=== PATIENT | male | born 1955 | race Caucasian/White ===

== ENCOUNTER 2018-07-06 12:27 | Inpatient (IN) | payer SELFPAY ==
[2018-07-06] VITALS (12 sets, daily range): BP systolic 137–180; BP diastolic 82–98; PULSE 112–134; RESP 20–23; TEMP 36.9–38.2; O2SAT 91–95; BMI 35.6; BMI 35.4
--- NOTE | 2018-07-06 13:01 | EKG12_ITS ---
Test Reason : SOB Blood Pressure : / mmHG Vent. Rate : 126 BPM Atrial Rate : 126 BPM P-R Int : 122 ms QRS Dur : 084 ms QT Int : 318 ms P-R-T Axes : 012 046 062 degrees QTc Int : 460 ms Sinus tachycardia Septal infarct , age undetermined Abnormal ECG Confirmed by MENDEZ QIU, JUANJO ([id number]), market editor MIKAYLA CARDENAS ([id number]) on 07/13/2018 3:22:25 PM Referred By: JIMY Confirmed By:JUANJO SIMMS MD
--- NOTE | 2018-07-06 13:04 | ED.DCSUM_ITS ---
- ER Visit Summary Date of Service: 07/06/18 Chief Complaint: Cough History of Present Illness: The patient is a 63 M who is had 2 months of cough. He has not felt well over this period of time. This morning he went to an urgent care and was diagnosed with pneumonia. His heart rate was elevated and he is a former smoker as he quit 2 weeks ago. He states he has had low-grade fevers at home and was 100.3 ?F at the urgent care today. He does not have any history of any lung issues. He is not on home oxygen. He has noticed some fluid retention in his legs recently. Physical Examination: Vital signs are reviewed. Significant for heart rate in the 120s. Temperature 98.4 here. HEENT exam unremarkable. Heart is tachycardic and regular rhythm without murmurs. Lungs have rhonchi in the right base. Abdomen soft and nontender. Extremities reveal 1+ symmetric edema. His neurologic exam is at baseline and normal. Test Results: EKG is sinus tachycardia with a rate of 126. Nonspecific ST and T wave changes noted. Chest x-ray reveals a left lower lobe infiltrate with effusion white blood cell count 25.5, hemoglobin 12.8, sodium 128, chloride 91. Total bilirubin is 1.5. Lactate is 2.3. Urinalysis negative for infection. Emergency Department Course and Treatment: Patient meets severe sepsis criteria. He was hydrated with fluids and given Rocephin and azithromycin. His blood pressure is been stable. Patient will be admitted to the hospital on antibiotics Treatment Plan: [] Disposition: Admit Impression: Severe sepsis, community-acquired pneumonia This note was generated with Software 2000 dictation software. It may contain incorrect words, spelling, and punctuation that were not noted in review of the chart prior to signing ED Disposition - Plan for ED Patient: Chief Complaint: Shortness of Breath Referrals: NOT,DEFINED [NON-STAFF] -
--- NOTE | 2018-07-06 13:05 | RAD_ITS ---
STUDY: X-RAY CHEST REASON FOR EXAM: Male, 63 years old. 2 week history of cough and shortness of breath. TECHNIQUE: Single AP portable view of the chest. COMPARISON: None. FINDINGS: EKG electrodes are seen. There is a small left pleural effusion with left basilar infiltration. The right lung is clear. There is no demonstrated pleural abnormality. Normal size heart. Normal mediastinum and luz. Normal visualized pulmonary arteries. Normal visualized aortic arch and descending thoracic aorta. Normal visualized thoracic spine. Normal visualized ribs, clavicles, and shoulders. There is no demonstrated abnormality of the visualized soft tissue structures of the upper abdomen. RAD/Chest 1 View (Portable) IMPRESSION: Small left pleural effusion with underlying left basilar infiltration. Electronically Signed: Lele Marvin MD at 13:33 EDT Tel [phone], Service support ,
--- NOTE | 2018-07-06 13:09 | NURSING ---
NO OLD EKGS
[2018-07-06 13:39] LABS: International Normalized Ratio 1.2; Prothrombin Time (Protime)PT. 15.2 SECONDS (11.7-14.9)
[2018-07-06 13:40] LABS: Partial Thromboplast Time 35.1 Seconds (24.1-36.2)
[2018-07-06 13:49] LABS: ALB/GLOB Ratio 0.6 RATIO (0.9-2.4); AST(SGOT) 24 U/L (15-37); Alanine Aminotransfer ALT/SGPT 29 U/L (16-61); Albumin, Serum 2.8 g/dL (3.2-5.0); Alkaline Phosphatase 115 U/L (45-117); Anion Gap 12 (5-15); BUN 9 mg/dL (7-18); BUN/Creat Ratio 8.7 RATIO (10-20); Calcium,Total 8.4 mg/dL (8.5-10.1); Chloride 91 mmol/L (98-107); Creatinine, Serum 1.03 mg/dL (0.70-1.30); EST Glomerular Filtration Rate 77 mL/min (>60); Est Glom Filt Rate - Afr Amer 94 mL/min (>60); Globulin 4.8 g/dL (2.2-4.2); Glucose 112 mg/dL (74-106); Potassium 3.3 mmol/L (3.5-5.1); Protein, Total 7.6 g/dL (6.4-8.2); Sodium Level 128 mmol/L (136-145)
[2018-07-06 13:51] LABS: Absolute Neutrophil Count 21.5 X10^3/uL (2.0-7.7); Basophil# 0.03 X10^3/uL; Basophil% 0.1 % (0-1); Eosinophil# 0.02 X10^3/uL; Eosinophils% 0.1 % (0-5); Hematocrit 35.4 % (40-54); Hemoglobin 12.8 g/dl (13.0-16.5); Lymphocyte % 4.7 % (19-41); Mean Corp Hgb Conc 36.2 g/gl (32-36); Mean Corpuscular Hgb 35.5 pg (27.0-32.0); Mean Corpuscular Volume 98.1 fL (80-94); Mean Platelet Vol. 10.6 fl (6.2-12.0); Monocyte# 2.64 X10^3/uL; Monocyte% 10.4 % (0-10); Neutrophil # 21.52 X10^3/uL (2.7-7.7); Neutrophil % 84.4 % (47-70); Platelet Count 235 K/mm3 (150-450); RBC Distribution Width CV 13.8 % (11.6-14.6); RBC Distribution Width SD 47.7 fl (35.1-43.9); Red Blood Count 3.61 M/mm3 (4.6-6.2); White Blood Count 25.5 K/mm3 (4.4-11.0)
[2018-07-06 13:52] LABS: Differential Indicated SCAN CRITERIA MET; POSITIVE COUNT NO; POSITIVE DIFFERENTIAL YES; POSITIVE MORPHOLOGY YES
[2018-07-06 13:55] LABS: Lactic Acid 2.3 mmol/L (0.4-2.0)
[2018-07-06 13:56] LABS: Bacteria 0 SEEN /hpf (None Seen); Mucous, Urine 0 SEEN /hpf (<or=2+); Red Blood Cells-Urine 0 SEEN /hpf (0-5); White Blood Cells 0 SEEN /hpf (0-5)
--- NOTE | 2018-07-06 13:57 | ED.RN ---
lactic acid 2.3. aware
[2018-07-06 14:03] LABS: Color, Urine Yellow (Yellow); Glucose, Dipstick Normal (Normal); Ketone-Dipstick 50 mg/dl (Negative); Leukocyte Esterase-Dipstick Negative /ul (Negative); Nitrite-Dipstick Negative (Negative); Occult Blood-Urine 50 /ul (Negative); Protein-Dipstick 100 mg/dl (Negative); Urine Bilirubin Dipstick Negative (Negative); Urine Clarity Sl. Cloudy (Clear); Urine Urobilinogen 1 mg/dl (Normal)
[2018-07-06 14:09] LABS: Squamous Epithelial Cells - UA 0-5 SEEN /hpf (0-5)
--- NOTE | 2018-07-06 14:23 | NURSING ---
[address]SE[address] SEPSIS, PNEUMONIA
[2018-07-06] MEDS: 0.9% Normal Saline 1,000 ML 250 ML IV (14:27)
[2018-07-06] MEDS: Ceftriaxone 1 GM/50 ML BAG IV (14:35)
--- NOTE | 2018-07-06 14:35 | PCM.HP.STD ---
Problem List (1) Severe sepsis Status: Acute (2) Pneumococcal pneumonia Status: Acute Qualifiers: Laterality: left Lung location: lower lobe of lung Qualified Code(s): J13 - Pneumonia due to Streptococcus pneumoniae (3) Hyponatremia Status: Acute (4) Hypokalemia Status: Acute History of Present Illness Date of Admission: 07/06/18 Chief Complaint: cough. chills. The patient is a 63 year old M been coughing for the past couple months but over the past couple days, patient has been feeling worse. Patient has been coughing up green phlegm and today was noted to have Reiger's. Presented to urgent care was found to have a left lower lobe pneumonia and sent to the serum. In the emergency room, patient was noted to have a white count sent, a left lower lobe infiltrate and/or effusion. Patient received IV fluids, ceftriaxone and azithromycin. Additionally, patient's lactic acid was elevated at 2.3. [] Past Medical History Medical History: Medical History (Last Updated 07/06/18 @ 14:39 by Marcell Galvan DO) Alcohol abuse F10.10 Tobacco abuse Z72.0 Allergies grass pollen Allergy (Verified 07/06/18 12:30) Other mold Allergy (Verified 07/06/18 12:30) Other ragweed pollen Allergy (Verified 07/06/18 12:30) Other Home Medications: Ambulatory Orders Medication Instructions Recorded NK 07/06/18 Psychiatric History: No pertinent psych hx Lives: With Family Smoking Status: Heavy Smoker (>10/day) Tobacco Use: Cigarettes Alcohol: Heavy Drugs: None - *Family History Maternal History Items: - - no cancer. no COPD. Review of Systems Constitutional: Reports: Chills, Malaise, Weakness. Denies: Anorexia, Fever Eyes: Denies: Blurred vision, Double vision HEENT: Denies: Head Aches, Sinus Congestion, Sinus Drainage Cardiovascular: Reports: Chest Pain - left lateral, Edema - chronic Respiratory: Reports: Cough, Shortness of Breath, Shortness of breath upon exertion, Sputum production Gastrointestinal: Denies: Abdominal Pain, Nausea, Vomiting Genitourinary: Denies: Dysuria Musculoskeletal: Denies: Joint Pain, Joint Tenderness Skin: Denies: Rash, Wounds Neurological: Denies: Numbness, Tingling, Focal weakness Psychiatric: Denies: Anxiety, Depression Endocrine: Denies: Change in Body Habitus Hematologic/ Lymphatic: Denies: Easy Bruising, Easy Bleeding, Hx of blood clot Comment: All review of systems are negative except as mentioned in the history of present illness and the other review of systems. VTE Information - Inpt Only VTE Present on Admission: No VTE Mechan Device Prophylaxis: None VTE Pharm Prophylaxis ordered?: Yes Patient Problems: Active and Suspected Problems Severe sepsis (Acute) Pneumococcal pneumonia (Acute) Hyponatremia (Acute) Hypokalemia (Acute) - Physical Exam General: Alert, Cooperative, No apparent distress, - - Listless. Afebrile. No conversational dyspnea. HEENT: Atraumatic, Normocephalic, - - No icterus Oral: Moist Mucosa, No Gingival or Mucosal Lesions/ Ulcerations Neck: No Nodes, Thyroid Normal Size and Texture Lungs: Diminished, - - Dullness to percussion in the left lower lobe Cardiovascular: Regular rate, Regular Rhythm, Normal S1, Normal S2, No murmurs Abdomen: Bowel Sounds Present, Soft, Non Tender, Non-Distended, No Hepato-splenomegaly Extremities: No Calf Tenderness, Edema Skin: No rashes, No breakdown Musculoskeletal: No Tenderness to Palpation of Joints or Extremities, No Muscle Wasting Neurological: Deep Tendon Reflexes 2+/4 and Symmetrical, Sensory exam intact to light touch and pain Psych/Mental Status: Appropriate, Flat Affect Vital Signs Temp Pulse Resp BP Pulse Ox 36.9 C 121 H 22 H 180/83 H 94 07/06/18 12:28 07/06/18 12:28 07/06/18 12:28 07/06/18 12:28 07/06/18 12:28 Oxygen Flow Rate (L/min) 2 Oxygen Delivery Method Nasal Cannula Weight: 106.141 kg Body Mass Index (BMI) 35.6 Laboratory Tests Past 24 Hrs 07/06/18 07/06/18 07/06/18 13:15 13:15 13:15 WBC 25.5 H RBC 3.61 L Hgb 12.8 L Hct 35.4 L MCV 98.1 H MCH 35.5 H MCHC 36.2 H RDW 13.8 RDW Differential 47.7 H Plt Count 235 MPV 10.6 Immature Gran % (Auto) 0.300 Neut % (Auto) 84.4 H Lymph % (Auto) 4.7 L [place] % (Auto) 10.4 H Eos % (Auto) 0.1 Baso % (Auto) 0.1 Absolute Neuts (auto) 21.5 H Absolute Lymphs (auto) 1.20 Total Counted Not Reportable Differential Comment COMMENT Diff Path Review May foll PT 15.2 H INR 1.2 APTT 35.1 Sodium 128 L Potassium 3.3 L Chloride 91 L Carbon Dioxide 25.0 Anion Gap 12 BUN 9 Creatinine 1.03 Estim Creat Clear Calc 70.10 Est GFR (MDRD) Af Amer 94 Est GFR (MDRD) Non-Af 77 BUN/Creatinine Ratio 8.7 L Glucose 112 H Lactic Acid Calcium 8.4 L Total Bilirubin 1.50 H AST 24 ALT 29 Alkaline Phosphatase 115 Total Protein 7.6 Albumin 2.8 L Globulin 4.8 H Albumin/Globulin Ratio 0.6 L Urine Color Urine Clarity Urine pH Ur Specific [place] Urine Protein Urine Glucose (UA) Urine Ketones Urine Occult Blood Urine Nitrite Urine Bilirubin Urine Urobilinogen Ur Leukocyte Esterase Urine RBC Urine WBC Ur Squamous Epith Cells Urine Bacteria Urine Mucus 07/06/18 07/06/18 13:15 13:50 WBC RBC Hgb Hct MCV MCH MCHC RDW RDW Differential Plt Count MPV Immature Gran % (Auto) Neut % (Auto) Lymph % (Auto) [place] % (Auto) Eos % (Auto) Baso % (Auto) Absolute Neuts (auto) Absolute Lymphs (auto) Total Counted Differential Comment Diff Path Review PT INR APTT Sodium Potassium Chloride Carbon Dioxide Anion Gap BUN Creatinine Estim Creat Clear Calc Est GFR (MDRD) Af Amer Est GFR (MDRD) Non-Af BUN/Creatinine Ratio Glucose Lactic Acid 2.3 H Calcium Total Bilirubin AST ALT Alkaline Phosphatase Total Protein Albumin Globulin Albumin/Globulin Ratio Urine Color Yellow Urine Clarity Sl. Cloudy Urine pH 6.0 Ur Specific [place] 1.010 Urine Protein 100 H Urine Glucose (UA) Normal Urine Ketones 50 H Urine Occult Blood 50 H Urine Nitrite Negative Urine Bilirubin Negative Urine Urobilinogen 1 H Ur Leukocyte Esterase Negative Urine RBC 0 SEEN Urine WBC 0 SEEN Ur Squamous Epith Cells 0-5 SEEN Urine Bacteria 0 SEEN Urine Mucus 0 SEEN EKG reviewed and showed sinus tachycardia without any acute changes Chest x-ray reviewed and showed left lower lobe infiltrate and/or effusion Assessment/Plan All Active Problems Severe sepsis (Acute) Pneumococcal pneumonia (Acute) Hyponatremia (Acute) Hypokalemia (Acute) 1. Severe sepsis Present on arrival Secondary to pneumonia Supportive management with IV fluids Follow-up lactic acid until normalized 2. Presumed pneumococcal pneumonia Patient will continue with azithromycin and Rocephin Pulmonary toilet with bronchodilators and physiotherapy Check urinary antigens for Streptococcus and Legionella Check sputum culture Check CT to evaluate for an effusion. Did discuss this with the patient that given his extensive smoking history that he could be at risk for malignancy and may have a postobstructive process possibly. 3. Hyponatremia Unclear etiology but certainly could be related with beer potomania IV fluids Reevaluate on the second If no improvement, consider checking for other etiologies for hyponatremia, such as hypothyroidism and SIADH. 4. Hypokalemia Replace with 40 mEq of K Dur Check magnesium level 5. Alcohol abuse Patient drinks 12 beers per day and occasional have a pint of vodka on top of that Patient's last drink was sometime this morning Patient is not going to acute alcohol withdrawal at this time I will, however, have them on the CIWA protocol Start thiamine and folate I did discuss with the patient and his son that symptoms of acute alcohol withdrawal could be anywhere from diffuse first few hours after his last drink to 4 days. 6. DVT prophylaxis with Lovenox Discussed with the patient's son at bedside. Code Visit Inpatient E&M: 07352 Init Hosp L3
--- NOTE | 2018-07-06 14:39 | HP.PCM_ITS ---
Problem List (1) Severe sepsis Status: Acute (2) Pneumococcal pneumonia Status: Acute Qualifiers: Laterality: left Lung location: lower lobe of lung Qualified Code(s): J13 - Pneumonia due to Streptococcus pneumoniae (3) Hyponatremia Status: Acute (4) Hypokalemia Status: Acute History of Present Illness Date of Admission: 07/06/18 Chief Complaint: cough. chills. The patient is a 63 year old M been coughing for the past couple months but over the past couple days, patient has been feeling worse. Patient has been coughing up green phlegm and today was noted to have Reiger's. Presented to urgent care was found to have a left lower lobe pneumonia and sent to the serum. In the emergency room, patient was noted to have a white count sent, a left lower lobe infiltrate and/or effusion. Patient received IV fluids, ceftriaxone and azithro mycin. Additionally, patient's lactic acid was elevated at 2.3. [] Past Medical History Medical History: Medical History (Last Updated 07/06/18 @ 14:39 by Marcell Galvan DO) Alcohol abuse F10.10 Tobacco abuse Z72.0 Allergies grass pollen Allergy (Verified 07/06/18 12:30) Other mold Allergy (Verified 07/06/18 12:30) Other ragweed pollen Allergy (Verified 07/06/18 12:30) Other Home Medications: Ambulatory Orders Medication Instructions Recorded NK 07/06/18 Psychiatric History: No pertinent psych hx Lives: With Family Smoking Status: Heavy Smoker (>10/day) Tobacco Use: Cigarettes Alcohol: Heavy Drugs: None - *Family History Maternal History Items: - - no cancer. no COPD. Review of Systems Constitutional: Reports: Chills, Malaise, Weakness. Denies: Anorexia, Fever Eyes: Denies: Blurred vision, Double vision HEENT: Denies: Head Aches, Sinus Congestion, Sinus Drainage Cardiovascular: Reports: Chest Pain - left lateral, Edema - chronic Respiratory: Reports: Cough, Shortness of Breath, Shortness of breath upon exertion, Sputum production Gastrointestinal: Denies: Abdominal Pain, Nausea, Vomiting Genitourinary: Denies: Dysuria Musculoskeletal: Denies: Joint Pain, Joint Tenderness Skin: Denies: Rash, Wounds Neurological: Denies: Numbness, Tingling, Focal weakness Psychiatric: Denies: Anxiety, Depression Endocrine: Denies: Change in Body Habitus Hematologic/ Lymphatic: Denies: Easy Bruising, Easy Bleeding, Hx of blood clot Comment: All review of systems are negative except as mentioned in the history of present illness and the other review of systems. VTE Information - Inpt Only VTE Present on Admission: No VTE Mechan Device Prophylaxis: None VTE Pharm Prophylaxis ordered?: Yes Patient Problems: Active and Suspected Problems Severe sepsis (Acute) Pneumococcal pneumonia (Acute) Hyponatremia (Acute) Hypokalemia (Acute) - Physical Exam General: Alert, Cooperative, No apparent distress, - - Listless. Afebrile. No conversational dyspnea. HEENT: Atraumatic, Normocephalic, - - No icterus Oral: Moist Mucosa, No Gingival or Mucosal Lesions/ Ulcerations Neck: No Nodes, Thyroid Normal Size and Texture Lungs: Diminished, - - Dullness to percussion in the left lower lobe Cardiovascular: Regular rate, Regular Rhythm, Normal S1, Normal S2, No murmurs Abdomen: Bowel Sounds Present, Soft, Non Tender, Non-Distended, No Hepato- splenomegaly Extremities: No Calf Tenderness, Edema Skin: No rashes, No breakdown Musculoskeletal: No Tenderness to Palpation of Joints or Extremities, No Muscle Wasting Neurological: Deep Tendon Reflexes 2+/4 and Symmetrical, Sensory exam intact to light touch and pain Psych/Mental Status: Appropriate, Flat Affect Vital Signs Temp Pulse Resp BP Pulse Ox 36.9 C 121 H 22 H 180/83 H 94 07/06/18 12:28 07/06/18 12:28 07/06/18 12:28 07/06/18 12:28 07/06/18 12:28 Oxygen Flow Rate (L/min) 2 Oxygen Delivery Method Nasal Cannula Weight: 106.141 kg Body Mass Index (BMI) 35.6 Laboratory Tests Past 24 Hrs 07/06/18 07/06/18 07/06/18 13:15 13:15 13:15 WBC 25.5 H RBC 3.61 L Hgb 12.8 L Hct 35.4 L MCV 98.1 H MCH 35.5 H MCHC 36.2 H RDW 13.8 RDW Differential 47.7 H Plt Count 235 MPV 10.6 Immature Gran % (Auto) 0.300 Neut % (Auto) 84.4 H Lymph % (Auto) 4.7 L [place] % (Auto) 10.4 H Eos % (Auto) 0.1 Baso % (Auto) 0.1 Absolute Neuts (auto) 21.5 H Absolute Lymphs (auto) 1.20 Total Counted Not Reportable Differential Comment COMMENT Diff Path Review May foll PT 15.2 H INR 1.2 APTT 35.1 Sodium 128 L Potassium 3.3 L Chloride 91 L Carbon Dioxide 25.0 Anion Gap 12 BUN 9 Creatinine 1.03 Estim Creat Clear Calc 70.10 Est GFR (MDRD) Af Amer 94 Est GFR (MDRD) Non-Af 77 BUN/Creatinine Ratio 8.7 L Glucose 112 H Lactic Acid Calcium 8.4 L Total Bilirubin 1.50 H AST 24 ALT 29 Alkaline Phosphatase 115 Total Protein 7.6 Albumin 2.8 L Globulin 4.8 H Albumin/Globulin Ratio 0.6 L Urine Color Urine Clarity Urine pH Ur Specific [place] Urine Protein Urine Glucose (UA) Urine Ketones Urine Occult Blood Urine Nitrite Urine Bilirubin Urine Urobilinogen Ur Leukocyte Esterase Urine RBC Urine WBC Ur Squamous Epith Cells Urine Bacteria Urine Mucus 07/06/18 07/06/18 13:15 13:50 WBC RBC Hgb Hct MCV MCH MCHC RDW RDW Differential Plt Count MPV Immature Gran % (Auto) Neut % (Auto) Lymph % (Auto) [place] % (Auto) Eos % (Auto) Baso % (Auto) Absolute Neuts (auto) Absolute Lymphs (auto) Total Counted Differential Comment Diff Path Review PT INR APTT Sodium Potassium Chloride Carbon Dioxide Anion Gap BUN Creatinine Estim Creat Clear Calc Est GFR (MDRD) Af Amer Est GFR (MDRD) Non-Af BUN/Creatinine Ratio Glucose Lactic Acid 2.3 H Calcium Total Bilirubin AST ALT Alkaline Phosphatase Total Protein Albumin Globulin Albumin/Globulin Ratio Urine Color Yellow Urine Clarity Sl. Cloudy Urine pH 6.0 Ur Specific [place] 1.010 Urine Protein 100 H Urine Glucose (UA) Normal Urine Ketones 50 H Urine Occult Blood 50 H Urine Nitrite Negative Urine Bilirubin Negative Urine Urobilinogen 1 H Ur Leukocyte Esterase Negative Urine RBC 0 SEEN Urine WBC 0 SEEN Ur Squamous Epith Cells 0-5 SEEN Urine Bacteria 0 SEEN Urine Mucus 0 SEEN EKG reviewed and showed sinus tachycardia without any acute changes Chest x-ray reviewed and showed left lower lobe infiltrate and/or effusion Assessment/Plan All Active Problems Severe sepsis (Acute) Pneumococcal pneumonia (Acute) Hyponatremia (Acute) Hypokalemia (Acute) 1. Severe sepsis * Present on arrival * Secondary to pneumonia * Supportive management with IV fluids * Follow-up lactic acid until normalized 2. Presumed pneumococcal pneumonia * Patient will continue with azithromycin and Rocephin * Pulmonary toilet with bronchodilators and physiotherapy * Check urinary antigens for Streptococcus and Legionella * Check sputum culture * Check CT to evaluate for an effusion. Did discuss this with the patient that given his extensive smoking history that he could be at risk for malignancy and may have a postobstructive process possibly. 3. Hyponatremia * Unclear etiology but certainly could be related with beer potomania * IV fluids * Reevaluate on the second * If no improvement, consider checking for other etiologies for hyponatremia, such as hypothyroidism and SIADH. 4. Hypokalemia * Replace with 40 mEq of K Dur * Check magnesium level 5. Alcohol abuse * Patient drinks 12 beers per day and occasional have a pint of vodka on top of that * Patient's last drink was sometime this morning * Patient is not going to acute alcohol withdrawal at this time * I will, however, have them on the CIWA protocol * Start thiamine and folate * I did discuss with the patient and his son that symptoms of acute alcohol withdrawal could be anywhere from diffuse first few hours after his last drink to 4 days. 6. DVT prophylaxis with Lovenox Discussed with the patient's son at bedside. Code Visit Inpatient E&M: 24848 Init Hosp L3
--- NOTE | 2018-07-06 14:58 | CT_ITS ---
STUDY: CT CHEST WITH CONTRAST REASON FOR EXAM: Male, 63 years old. Cough. Shortness breath. RADIATION DOSAGE (If Supplied By Facility): CTDIvol = ( 14.64 ) mGy, DLP = ( 762.75 ) mGycm TECHNIQUE: Transaxial imaging was performed following intravenous administration of 100 ml of Isovue 300 contrast material. Coronal and sagittal reformatted images were created. Individualized dose optimization techniques were used for this CT. COMPARISON: None FINDINGS: This study is limited by patient motion. There is dense airspace opacity inferiorly in the lingula and throughout the left lower lobe. This is likely infectious in etiology. However, an underlying mass cannot be excluded. The lungs are otherwise clear. There is a small left pleural effusion. There is a right-sided effusion. There is mediastinal and bilateral hilar lymphadenopathy with the largest node measuring 1.6 cm and the left hilum. There is no pneumothorax. The heart and pericardium are within normal limits. There are coronary artery calcifications noted. There is no evidence of thoracic aortic aneurysm. Images through the upper abdomen demonstrate an indeterminate left adrenal nodule. There are no destructive osseous lesions. CT/Chest WITH Contrast IMPRESSION: Dense airspace opacity inferiorly in the lingula and throughout the left lower lobe. This is likely infectious in etiology. However, an underlying mass cannot be excluded. Follow-up after treatment is recommended. Mediastinal and bilateral hilar lymphadenopathy. Small left pleural effusion. Coronary artery disease. Indeterminate left adrenal nodule. Electronically Signed: Shabbir Merino, at 16:31 EDT Tel , Service support ,
[2018-07-06 17:26] LABS: Reflex Lactate? Y
[2018-07-06] MEDS: LORazepam 2 MG/ML Syringe IV ×2 (17:28→22:06)
[2018-07-06] MEDS: 0.9% NaCl Peripheral Flush Adult/Peds IV ×2 (17:28→21:38)
[2018-07-06] MEDS: oxyCODONE 5 MG Tablet PO ×2 (17:42→22:53)
[2018-07-06] MEDS: Thiamine Hydrochloride 100 MG Tablet PO (17:45)
[2018-07-06] MEDS: 0.9% Normal Saline 1,000 ML 100 ML IV (18:09)
[2018-07-06 18:31] LABS: Lactic Acid 1.2 mmol/L (0.4-2.0)
[2018-07-06] MEDS: Ipratropium/Albuterol Sulfate 3 ML AMPUL.NEB INHALATION (19:05)
[2018-07-06] MEDS: guaiFENesin 1,200 MG Tablet 1200 MG PO (22:05)
[2018-07-07] VITALS (21 sets, daily range): BP systolic 149–177; BP diastolic 83–107; PULSE 101–126; RESP 18–28; TEMP 36.7–37.2; O2SAT 93–98
[2018-07-07] MEDS: Ipratropium/Albuterol Sulfate 3 ML AMPUL.NEB INHALATION ×3 (00:45→13:16)
[2018-07-07] MEDS: 0.9% Normal Saline 1,000 ML 100 ML IV (05:00)
[2018-07-07 05:45] LABS: Absolute Lymphocyte Count 2.06 X10^3/ul (0.83-4.51); Absolute Neutrophil Count 25.8 X10^3/uL (2.0-7.7); Basophil% 0.3 % (0-1); Eosinophil# 0.04 X10^3/uL; Eosinophils% 0.1 % (0-5); Lymphocyte # 2.06 X10^3/ul (4.0); Lymphocyte % 6.4 % (19-41); Monocyte# 4.25 X10^3/uL; Monocyte% 13.1 % (0-10); Neutrophil # 25.83 X10^3/uL (2.7-7.7); Neutrophil % 79.7 % (47-70)
[2018-07-07 06:01] LABS: Hematocrit 31.4 % (40-54); Hemoglobin 10.9 g/dl (13.0-16.5); Red Blood Count 3.21 M/mm3 (4.6-6.2)
[2018-07-07 06:02] LABS: Differential Indicated SCAN CRITERIA MET; Mean Corp Hgb Conc 34.7 g/gl (32-36); Mean Corpuscular Volume 97.8 fL (80-94); Mean Platelet Vol. 10.9 fl (6.2-12.0); POSITIVE COUNT YES; POSITIVE DIFFERENTIAL YES; POSITIVE MORPHOLOGY NO; Platelet Count 257 K/mm3 (150-450); RBC Distribution Width CV 14.1 % (11.6-14.6); RBC Distribution Width SD 49.5 fl (35.1-43.9)
[2018-07-07 06:09] LABS: Differential Comment SCANNED
[2018-07-07 06:11] LABS: White Blood Count 36.5 K/mm3 (4.4-11.0)
[2018-07-07 06:15] LABS: ALB/GLOB Ratio 0.4 RATIO (0.9-2.4); AST(SGOT) 31 U/L (15-37); Alanine Aminotransfer ALT/SGPT 28 U/L (16-61); Alkaline Phosphatase 127 U/L (45-117); Anion Gap 11 (5-15); BUN 19 mg/dL (7-18); BUN/Creat Ratio 18.3 RATIO (10-20); Calcium,Total 8.1 mg/dL (8.5-10.1); Chloride 99 mmol/L (98-107); Creatinine, Serum 1.04 mg/dL (0.70-1.30); EST Glomerular Filtration Rate 76 mL/min (>60); Est Glom Filt Rate - Afr Amer 92 mL/min (>60); Estimated Creatinine Clearance 69.42 ml/min; Globulin 5.2 g/dL (2.2-4.2); Glucose 131 mg/dL (74-106); Magnesium 2.6 mg/dL (1.6-2.6); Potassium 4.1 mmol/L (3.5-5.1); Protein, Total 7.2 g/dL (6.4-8.2); Sodium Level 130 mmol/L (136-145)
[2018-07-07] MEDS: LORazepam 2 MG/ML Syringe 0.5 MG IV (06:40)
[2018-07-07] MEDS: Enoxaparin 40 MG/0.4 ML Syringe SC (09:34)
[2018-07-07] MEDS: Thiamine Hydrochloride 100 MG Tablet PO ×2 (09:35→17:11)
[2018-07-07] MEDS: Folic Acid 1 MG Tablet PO (09:35)
[2018-07-07] MEDS: guaiFENesin 1,200 MG Tablet 1200 MG PO ×2 (09:35→22:16)
[2018-07-07] MEDS: Albuterol 2.5 MG/3 ML VIAL.NEB. INHALATION ×2 (10:01→22:28)
[2018-07-07 10:25] LABS: Amphetamine Urine VISTA NEGATIVE (<1000 ng/mL); Barbiturate Urine VISTA NEGATIVE (< 200 ng/mL); Benzodiazepine Urine VISTA NEGATIVE (< 200 ng/mL); Cocaine Urine VISTA NEGATIVE (< 300 ng/mL); Ecstacy Urine VISTA NEGATIVE (< 500 ng/mL); Methadone Urine VISTA NEGATIVE (< 300 ng/mL); PCP Urine VISTA NEGATIVE (< 25 ng/mL); THC Urine VISTA NEGATIVE (< 50 ng/mL); Vista UDS pH Range 5
--- NOTE | 2018-07-07 11:42 | CASEMGMT ---
RN CM Note Pt presented to ER with productive cough, LLL pneumonia. PCP: None. Pt states he plans to return to Dr. Rodriguez. List of PCP's given to pt Preferred Pharmacy: [facility], may need to use [facility] if Pharmacy assistance is needed. Insurance: venkat pay Prescription Benefit:? NO Living Will/HPOA: No, declined information LNOK: son and daughter in law Living Arrangements: son and daughter in law live in bottom half of two story duplex Transportation: pt states he drives DME/HHC: none ?Intro role of CM to patient. He states he lives in top floor of duplex independently. No DME use. Plan is to return home on dc. Pt with active tremor, hx of ETOH abuse. Recommend SW consult for self pay, ETOH abuse. Pt is on O2 in hospital. May need O2 testing on dc, however home oxygen would be self pay. Plan: Home on dc, SW referral for self pay status, community resources, ETOH abuse and community resources.
[2018-07-07 13:31] LABS: Pathologist Review Reviewed
[2018-07-07 13:33] LABS: Pathologist Review Reviewed
--- NOTE | 2018-07-07 13:56 | PCM.PROGNOTE ---
<Ceci De La Cruz - Last Filed: 07/07/18 14:07> Patient Problems: Active and Suspected Problems (Last Updated 07/06/18 @ 14:39 by Marcell Galvan DO) Severe sepsis (Acute) Pneumococcal pneumonia (Acute) Hyponatremia (Acute) Hypokalemia (Acute) Subjective: Patient seen and examined. Complains of tremors, anxiety. Denies nausea, vomiting, diarrhea. Complains of continued shortness of breath, although improved. - Physical Exam General: Alert, Oriented x3, Cooperative HEENT: Atraumatic, PERRLA, EOMI, Normocephalic Neck: Supple, No JVD, Negative Carotid Bruits Lungs: Clear to auscultation, Diminished Cardiovascular: Regular rate, Regular Rhythm, Normal S1, Normal S2, No murmurs Abdomen: Bowel Sounds Present, Soft, Non Tender, Non-Distended, Obese Extremities: No clubbing, No cyanosis, Capillary Refill Less than 3 Seconds, Edema - Bilateral lower extremity edema Skin: No rashes, No breakdown Musculoskeletal: No Tenderness to Palpation of Joints or Extremities Neurological: Cranial nerves II-XII grossly intact, Neuro grossly intact Psych/Mental Status: Normal Affect, Appropriate Vital Signs Temp Pulse Resp BP Pulse Ox 98.5 F 117 H 20 H 158/89 H 96 07/07/18 12:16 07/07/18 13:17 07/07/18 13:17 07/07/18 12:16 07/07/18 12:16 Oxygen Flow Rate (L/min) 2 Oxygen Delivery Method Nasal Cannula Weight: 233 lb 6.384 oz Body Mass Index (BMI) 35.4 Intake and Output for Last 24 Hours 07/05/18 07/06/18 07/07/18 23:59 23:59 23:59 Intake Total 746 / 746 2047 / 2047 Output Total 150 / 150 500 / 500 Balance 596 / 596 1547 / 1547 Microbiology Past 72 Hours 07/06/18 13:50 Urine Culture - Preliminary Urine, Clean Catch Culture exhibits no growth. 07/06/18 13:50 Legionella Antigen - Final Urine, Clean Catch 07/06/18 13:50 Streptococcus pneumoniae Antigen (M - Final Urine, Clean Catch 07/06/18 13:15 Blood Culture - Preliminary Blood Culture (Wb) - Anticubital Right No Bacterial Growth Laboratory Tests Past 24 Hrs 07/06/18 07/06/18 07/06/18 13:15 13:50 17:50 WBC RBC Hgb Hct MCV MCH MCHC RDW RDW Differential Plt Count MPV Immature Gran % (Auto) Neut % (Auto) Lymph % (Auto) [place] % (Auto) Eos % (Auto) Baso % (Auto) Absolute Neuts (auto) Absolute Lymphs (auto) Total Counted Not Reportable Differential Comment COMMENT Diff Path Review Reviewed Sodium Potassium Chloride Carbon Dioxide Anion Gap BUN Creatinine Estim Creat Clear Calc Est GFR (MDRD) Af Amer Est GFR (MDRD) Non-Af BUN/Creatinine Ratio Glucose Lactic Acid 1.2 Calcium Magnesium Total Bilirubin AST ALT Alkaline Phosphatase Total Protein Albumin Globulin Albumin/Globulin Ratio Urine Color Yellow Urine Clarity Sl. Cloudy Urine pH 6.0 Ur Specific Alexander 1.010 Urine Protein 100 H Urine Glucose (UA) Normal Urine Ketones 50 H Urine Occult Blood 50 H Urine Nitrite Negative Urine Bilirubin Negative Urine Urobilinogen 1 H Ur Leukocyte Esterase Negative Urine RBC 0 SEEN Urine WBC 0 SEEN Ur Squamous Epith Cells 0-5 SEEN Urine Bacteria 0 SEEN Urine Mucus 0 SEEN Urine Opiates Screen Urine Methadone Screen Ur Barbiturates Screen Ur Phencyclidine Scrn Ur Amphetamines Screen U Methamphetamin-MDMA U Benzodiazepines Scrn Urine Cocaine Screen U Cannabinoids Screen Ur Drug Screen Comment 07/07/18 07/07/18 07/07/18 05:14 05:14 10:00 WBC 36.5 H* RBC 3.21 L Hgb 10.9 L Hct 31.4 L MCV 97.8 H MCH 34.0 H MCHC 34.7 RDW 14.1 RDW Differential 49.5 H Plt Count 257 MPV 10.9 Immature Gran % (Auto) 0.400 Neut % (Auto) 79.7 H Lymph % (Auto) 6.4 L [place] % (Auto) 13.1 H Eos % (Auto) 0.1 Baso % (Auto) 0.3 Absolute Neuts (auto) 25.8 H Absolute Lymphs (auto) 2.06 Total Counted Not Reportable Differential Comment SCANNED Diff Path Review Reviewed Sodium 130 L Potassium 4.1 Chloride 99 Carbon Dioxide 20.0 L Anion Gap 11 BUN 19 H Creatinine 1.04 Estim Creat Clear Calc 69.42 Est GFR (MDRD) Af Amer 92 Est GFR (MDRD) Non-Af 76 BUN/Creatinine Ratio 18.3 Glucose 131 H Lactic Acid Calcium 8.1 L Magnesium 2.6 Total Bilirubin 2.10 H AST 31 ALT 28 Alkaline Phosphatase 127 H Total Protein 7.2 Albumin 2.0 L Globulin 5.2 H Albumin/Globulin Ratio 0.4 L Urine Color Urine Clarity Urine pH Ur Specific Alexander Urine Protein Urine Glucose (UA) Urine Ketones Urine Occult Blood Urine Nitrite Urine Bilirubin Urine Urobilinogen Ur Leukocyte Esterase Urine RBC Urine WBC Ur Squamous Epith Cells Urine Bacteria Urine Mucus Urine Opiates Screen NEGATIVE Urine Methadone Screen NEGATIVE Ur Barbiturates Screen NEGATIVE Ur Phencyclidine Scrn NEGATIVE Ur Amphetamines Screen NEGATIVE U Methamphetamin-MDMA NEGATIVE U Benzodiazepines Scrn NEGATIVE Urine Cocaine Screen NEGATIVE U Cannabinoids Screen NEGATIVE Ur Drug Screen Comment Medical Necessity - Tobacco Use Smoking Status: Heavy Smoker (>10/day) Tobacco Use: Cigarettes Assessment/Plan All Active Problems (Last Updated 07/06/18 @ 14:39 by Marcell Galvan DO) Severe sepsis (Acute) Pneumococcal pneumonia (Acute) Hyponatremia (Acute) Hypokalemia (Acute) 1. Severe sepsis suspected secondary to community-acquired pneumonia vs aspiration PNA given hx of alcohol abuse with associated acute hypoxia-chest x-ray on admission with small pleural effusion on the left with underlying left basilar infiltration. CT of chest shows small left pleural effusion, likely infectious etiology. Urine negative for strep and Legionella. Sputum culture pending. Urine culture shows no growth. Blood culture preliminary shows no growth. Initially started on azithromycin and Rocephin. Change to Unasyn due to possible aspiration pneumonia. Recommend follow-up CT of chest as outpatient in 4-6 weeks. Albuterol and DuoNeb aerosols. ST eval. Aspiration precautions. PEP/IS. 2. Alcohol withdrawal/chronic alcohol abuse-patient reports drinking 12 beers per day. CIWA protocol. Continue thiamine, folate supplementation. 3. Electric disturbances including hyponatremia and hypokalemia. Suspect hyponatremia secondary to severe protein maggie. Improved with IV fluids. Trend BMP. 4. Tobacco dependence-reports quitting 2 weeks ago. Encouraged continued smoking cessation. DVT prophylaxis-Lovenox subcu. This patient was seen by IVY Cota under the supervision of Dr. Arredondo. <Allan Arredondo - Last Filed: 07/07/18 16:08> Subjective: Seen and examined in the morning. Patient is short of breath. Left-sided pleuritic chest pain, worse on coughing and deep breathing. Patient is back a smoker and smokes 2 pack/day since teenage until [address] scan images reviewed and discussed with the patient. - Physical Exam General: Alert, Oriented x3, Cooperative HEENT: Atraumatic, PERRLA, EOMI, Normocephalic Neck: Supple, No JVD, Negative Carotid Bruits Lungs: Diminished, Rhonchi, Short of Breath, Tachypneic, - - On 2 L of oxygen Cardiovascular: Regular Rhythm, Normal S1, Normal S2, No murmurs, Tachycardic Abdomen: Bowel Sounds Present, Soft, Non Tender, Obese Extremities: No clubbing, No cyanosis, Edema Skin: No rashes, No breakdown Musculoskeletal: No Tenderness to Palpation of Joints or Extremities Vital Signs Temp Pulse Resp BP Pulse Ox 98.7 F 117 H 26 H 158/87 H 97 07/07/18 14:44 07/07/18 14:44 07/07/18 14:44 07/07/18 14:44 07/07/18 14:44 Oxygen Flow Rate (L/min) 2 Oxygen Delivery Method Nasal Cannula Weight: 233 lb 6.384 oz Body Mass Index (BMI) 35.4 Intake and Output for Last 24 Hours 07/05/18 07/06/18 07/07/18 23:59 23:59 23:59 Intake Total 746 / 746 2047 / 2047 Output Total 150 / 150 500 / 500 Balance 596 / 596 1547 / 1547 Microbiology Past 72 Hours 07/06/18 13:15 Blood Culture - Preliminary Blood Culture (Wb) - Anticubital Right 07/06/18 13:50 Urine Culture - Preliminary Urine, Clean Catch Culture exhibits no growth. 07/06/18 13:50 Legionella Antigen - Final Urine, Clean Catch 07/06/18 13:50 Streptococcus pneumoniae Antigen (M - Final Urine, Clean Catch Laboratory Tests Past 24 Hrs 07/06/18 07/06/18 07/07/18 13:15 17:50 05:14 WBC 36.5 H* RBC 3.21 L Hgb 10.9 L Hct 31.4 L MCV 97.8 H MCH 34.0 H MCHC 34.7 RDW 14.1 RDW Differential 49.5 H Plt Count 257 MPV 10.9 Immature Gran % (Auto) 0.400 Neut % (Auto) 79.7 H Lymph % (Auto) 6.4 L [place] % (Auto) 13.1 H Eos % (Auto) 0.1 Baso % (Auto) 0.3 Absolute Neuts (auto) 25.8 H Absolute Lymphs (auto) 2.06 Total Counted Not Reportable Differential Comment SCANNED Diff Path Review Reviewed Reviewed Sodium Potassium Chloride Carbon Dioxide Anion Gap BUN Creatinine Estim Creat Clear Calc Est GFR (MDRD) Af Amer Est GFR (MDRD) Non-Af BUN/Creatinine Ratio Glucose Lactic Acid 1.2 Calcium Magnesium Total Bilirubin AST ALT Alkaline Phosphatase Total Protein Albumin Globulin Albumin/Globulin Ratio Urine Opiates Screen Urine Methadone Screen Ur Barbiturates Screen Ur Phencyclidine Scrn Ur Amphetamines Screen U Methamphetamin-MDMA U Benzodiazepines Scrn Urine Cocaine Screen U Cannabinoids Screen Ur Drug Screen Comment 07/07/18 07/07/18 05:14 10:00 WBC RBC Hgb Hct MCV MCH MCHC RDW RDW Differential Plt Count MPV Immature Gran % (Auto) Neut % (Auto) Lymph % (Auto) [place] % (Auto) Eos % (Auto) Baso % (Auto) Absolute Neuts (auto) Absolute Lymphs (auto) Total Counted Differential Comment Diff Path Review Sodium 130 L Potassium 4.1 Chloride 99 Carbon Dioxide 20.0 L Anion Gap 11 BUN 19 H Creatinine 1.04 Estim Creat Clear Calc 69.42 Est GFR (MDRD) Af Amer 92 Est GFR (MDRD) Non-Af 76 BUN/Creatinine Ratio 18.3 Glucose 131 H Lactic Acid Calcium 8.1 L Magnesium 2.6 Total Bilirubin 2.10 H AST 31 ALT 28 Alkaline Phosphatase 127 H Total Protein 7.2 Albumin 2.0 L Globulin 5.2 H Albumin/Globulin Ratio 0.4 L Urine Opiates Screen NEGATIVE Urine Methadone Screen NEGATIVE Ur Barbiturates Screen NEGATIVE Ur Phencyclidine Scrn NEGATIVE Ur Amphetamines Screen NEGATIVE U Methamphetamin-MDMA NEGATIVE U Benzodiazepines Scrn NEGATIVE Urine Cocaine Screen NEGATIVE U Cannabinoids Screen NEGATIVE Ur Drug Screen Comment Assessment/Plan This patient was seen in conjunction with Franco LANDIS. I have independently interviewed and examined the patient and reviewed pertinent history, examination findings, laboratory and plan of management. I have reviewed the note and agree with the documented findings with the few additional points. In brief, patient is admitted for productive cough for past couple of months along with shortness of breath, tachypnea which has gotten worse over the past few days and on further workup found to have left lower lobe and lingular lobe community-acquired pneumonia with underlying small left pleural effusion on chest CT scan consistent with severe sepsis secondary to multifocal community-acquired pneumonia/aspiration pneumonia. Urinary antigens negative. Was initially started on IV Rocephin and Zithromax then changed to IV antibiotic Unasyn. I have discussed my assessment with Franco LANDIS and orders have been reviewed. Code Visit Inpatient E&M: 84072 Subs Hosp L3
[2018-07-07] MEDS: oxyCODONE 5 MG Tablet PO (22:16)
[2018-07-08] VITALS (18 sets, daily range): BP systolic 145–183; BP diastolic 71–105; PULSE 104–125; RESP 16–24; TEMP 36.6–37.1; O2SAT 93–105
[2018-07-08] MEDS: Ipratropium/Albuterol Sulfate 3 ML AMPUL.NEB INHALATION ×3 (00:33→19:15)
[2018-07-08] MEDS: Metoprolol Tartrate 5 MG/5 ML Vial IV ×2 (01:06→07:25)
[2018-07-08] MEDS: Magnesium Hydroxide 30 ML UDC PO (06:16)
[2018-07-08 06:32] LABS: Anion Gap 8 (5-15); BUN 21 mg/dL (7-18); BUN/Creat Ratio 24.1 RATIO (10-20); Calcium,Total 8.3 mg/dL (8.5-10.1); Chloride 100 mmol/L (98-107); Creatinine, Serum 0.87 mg/dL (0.70-1.30); EST Glomerular Filtration Rate 94 mL/min (>60); Est Glom Filt Rate - Afr Amer 114 mL/min (>60); Estimated Creatinine Clearance 82.99 ml/min; Glucose 116 mg/dL (74-106); Potassium 4.1 mmol/L (3.5-5.1); Sodium Level 138 mmol/L (136-145)
[2018-07-08 06:40] LABS: Hematocrit 27.5 % (40-54); Hemoglobin 9.2 g/dl (13.0-16.5); Mean Corp Hgb Conc 33.5 g/gl (32-36); Mean Corpuscular Hgb 33.7 pg (27.0-32.0); Mean Corpuscular Volume 100.7 fL (80-94); Mean Platelet Vol. 10.6 fl (6.2-12.0); Platelet Count 284 K/mm3 (150-450); RBC Distribution Width SD 48.8 fl (35.1-43.9); Red Blood Count 2.73 M/mm3 (4.6-6.2); White Blood Count 23.2 K/mm3 (4.4-11.0)
[2018-07-08 06:42] LABS: Scan Indicated on CBC? Y/N NO
[2018-07-08] MEDS: Folic Acid 1 MG Tablet PO (08:02)
[2018-07-08] MEDS: Thiamine Hydrochloride 100 MG Tablet PO ×2 (08:03→18:37)
[2018-07-08] MEDS: oxyCODONE 5 MG Tablet PO ×2 (08:03→21:53)
--- NOTE | 2018-07-08 10:28 | CASEMGMT ---
SW spoke with patient regarding his self pay status and alcohol abuse. SW introduced self and role at [facility]. Patient said he does not qualify for Medicaid anymore. He took early group home 2 years ago and is now over income. He has not seen a doctor due to no insurance. He used to see Dr Rodriguez and would like to go back to him. SW told him about [facility]'s financial assistance program and gave him a packet. SW also spoke with him about his alcohol abuse. He said he has been drinking a 12 pack of beer since his group home 2 years ago. SW asked him if he had any interest in stopping and he said right now he has too much going on to think about that. He was open to receiving resources. SW asked him about Depression, but he denies this. GABRIELLE gave patient a packet of resources for [facility] and [facility]. SW will also watch to see if patient will require assistance with his d/c meds. Sandy HARTLEY MSW
[2018-07-08] MEDS: guaiFENesin 1,200 MG Tablet 1200 MG PO ×2 (10:35→21:53)
[2018-07-08] MEDS: Enoxaparin 40 MG/0.4 ML Syringe SC (10:35)
[2018-07-08] MEDS: Lisinopril 10 MG Tablet PO (10:37)
[2018-07-08] MEDS: 0.9% NaCl IVPB Med Flush (250 mL) 15 ML IV (10:48)
--- NOTE | 2018-07-08 12:45 | ECHOCS_ITS ---
Reason For Study: DYSPNEA Procedure This was a 2D Doppler, Color Flow transthoracic echocardiogram. Pt sitting upright for test due to breathing/O2 issues. The exam was of poor technical quality due to patient positioning. Contrast injection was performed. The study was technically limited. Exam performed portable in patient room. Left Ventricle Normal size and thickness. The estimated ejection fraction is 55 %. Stage 2 diastolic dysfunction. No regional wall motion abnormalities noted. Right Ventricle Normal size and thickness. Normal systolic function. Mitral Valve The mitral valve is structurally normal. No prolapse or stenosis seen. Tricuspid Valve Normal tricuspid valve. Unable to estimate RV systolic pressure due to inadequate jet, pulmonary artery pressure probably normal. Aortic Valve Normal aortic valve. Trisinus/trileaflet aortic valve. Pulmonic Valve The pulmonic valve is not well visualized. Great Vessels Normal aortic root. Normal arch. Normal inferior vena cava. Inferior vena cava collapse with sniff. Pericardium/Pleural No pericardial effusion. Medication Diluted definity 3ml given slow IV push to enhance endocardial definition. MMode/2D Measurements & Calculations LVIDd: 4.6 cm IVSd: 1.2 cm LVAd ap4: 35.5 cm2 LVIDs: 3.5 cm LVPWd: 1.2 cm EDV(MOD-sp4): 122.0 ml FS: 22.7 % EDV(sp4-el): 126.0 ml LVAs ap4: 23.8 cm2 ESV(MOD-sp4): 69.0 ml ESV(sp4-el): 72.2 ml EF(MOD-sp4): 43.4 % EF(sp4-el): 42.7 % SV(MOD-sp4): 53.0 ml SV(sp4-el): 53.8 ml Doppler Measurements & Calculations MV E max boo: 103.1 cm/sec Lat Peak E' Boo: 11.7 cm/sec Med Peak E' Boo: 10.8 cm/sec MV A max boo: 86.5 cm/sec E/E' lat: 8.8 E/E' med: 9.6 MV E/A: 1.2 Ao V2 max: 153.9 cm/sec LV V1 max: 108.7 cm/sec PA V2 max: 118.3 cm/sec Ao max P.5 mmHg LV V1 max P.7 mmHg Interpretation Summary The estimated ejection fraction is 55 %. Stage 2 diastolic dysfunction. Unable to estimate RV systolic pressure due to inadequate jet, pulmonary artery pressure probably normal. The study was technically difficult. There is no comparison study available. Contrast injection was performed. Crdering Physician: Ceci De La Cruz NP- Performed By: Anais Gonzalez RDCS, RVT
--- NOTE | 2018-07-08 12:48 | PN_ITS ---
<Ceci De La Cruz - Last Filed: 07/08/18 12:49> Patient Problems: Active and Suspected Problems (Last Updated 07/06/18 @ 14:39 by Marcell Galvan DO) Severe sepsis (Acute) Pneumococcal pneumonia (Acute) Hyponatremia (Acute) Hypokalemia (Acute) Subjective: Patient seen and examined. Tremors improved from prior. Complains of continued shortness of breath, increased with exertion and lower extremity swelling. - Physical Exam General: Alert, Oriented x3, Cooperative, No apparent distress HEENT: Atraumatic, PERRLA, EOMI, Normocephalic Neck: Supple, No JVD, Negative Carotid Bruits Lungs: Diminished, Wheezes Cardiovascular: Regular rate, Regular Rhythm, Normal S1, Normal S2, No murmurs Abdomen: Bowel Sounds Present, Soft, Non Tender, Non-Distended, Obese Extremities: No clubbing, No cyanosis, Edema - Bilateral lower extremity edema Skin: No rashes, No breakdown Musculoskeletal: No Tenderness to Palpation of Joints or Extremities Neurological: Cranial nerves II-XII grossly intact, Neuro grossly intact Psych/Mental Status: Normal Affect, Appropriate Vital Signs Temp Pulse Resp BP Pulse Ox 98.5 F 104 H 20 H 153/85 H 105 07/08/18 11:10 07/08/18 11:10 07/08/18 11:10 07/08/18 11:10 07/08/18 11:10 Oxygen Flow Rate (L/min) 2 Oxygen Delivery Method Nasal Cannula Weight: 233 lb 6.384 oz Body Mass Index (BMI) 35.4 Intake and Output for Last 24 Hours 07/06/18 07/07/18 07/08/18 23:59 23:59 23:59 Intake Total 746 / 746 2687 / 2687 661 / 661 Output Total 150 / 150 500 / 500 Balance 596 / 596 2187 / 2187 661 / 661 Microbiology Past 72 Hours 07/07/18 09:47 Gram Stain - Final Sputum, Expectorated/Coughed Respiratory Culture - Preliminary Appears to be normal respiratory wan. Further studies to follow. 07/06/18 13:50 Urine Culture - Final Urine, Clean Catch Culture exhibits no growth. 07/06/18 13:15 Blood Culture - Preliminary Blood Culture (Wb) - Anticubital Right 07/06/18 13:50 Legionella Antigen - Final Urine, Clean Catch 07/06/18 13:50 Streptococcus pneumoniae Antigen (M - Final Urine, Clean Catch Laboratory Tests Past 24 Hrs 07/06/18 07/07/18 07/08/18 13:15 05:14 05:48 WBC 23.2 H RBC 2.73 L Hgb 9.2 L Hct 27.5 L MCV 100.7 H MCH 33.7 H MCHC 33.5 RDW 14.0 RDW Differential 48.8 H Plt Count 284 MPV 10.6 Diff Path Review Reviewed Reviewed Sodium Potassium Chloride Carbon Dioxide Anion Gap BUN Creatinine Estim Creat Clear Calc Est GFR (MDRD) Af Amer Est GFR (MDRD) Non-Af BUN/Creatinine Ratio Glucose Calcium 07/08/18 05:48 WBC RBC Hgb Hct MCV MCH MCHC RDW RDW Differential Plt Count MPV Diff Path Review Sodium 138 Potassium 4.1 Chloride 100 Carbon Dioxide 30.0 Anion Gap 8 BUN 21 H Creatinine 0.87 Estim Creat Clear Calc 82.99 Est GFR (MDRD) Af Amer 114 Est GFR (MDRD) Non-Af 94 BUN/Creatinine Ratio 24.1 H Glucose 116 H Calcium 8.3 L Medical Necessity - Tobacco Use Smoking Status: Heavy Smoker (>10/day) Tobacco Use: Cigarettes Assessment/Plan All Active Problems (Last Updated 07/06/18 @ 14:39 by Marcell Galvan DO) Severe sepsis (Acute) Pneumococcal pneumonia (Acute) Hyponatremia (Acute) Hypokalemia (Acute) 1. Severe sepsis suspected secondary to community-acquired pneumonia vs aspiration PNA given hx of alcohol abuse with associated acute hypoxia-chest x- ray on admission with small pleural effusion on the left with underlying left basilar infiltration. CT of chest shows small left pleural effusion, likely infectious etiology. Urine negative for strep and Legionella. Sputum culture shows normal respiratory wan. Urine culture shows no growth. Blood culture preliminary shows no growth. Initially started on azithromycin and Rocephin. Change to Unasyn due to possible aspiration pneumonia. Leukocytosis improved with Unasyn/azithromycin regimen. Recommend follow-up CT of chest as outpatient in 4-6 weeks. Albuterol and DuoNeb aerosols. ST eval. Aspiration precautions. PEP/IS. Patient will need walking pulse ox prior to discharge. 2. Alcohol withdrawal/chronic alcohol abuse-patient reports drinking 12 beers per day. CIWA protocol. Continue thiamine, folate supplementation. 3. Electric disturbances including hyponatremia and hypokalemia. Suspect hyponatremia secondary to severe protein maggie. Resolved with IV fluids. Trend BMP. 4. Tobacco dependence-reports quitting 2 weeks ago. Encouraged continued smoking cessation. 5. Lower extremity edema-snug salma wraps bilateral lower extremities. Obtain echo. IV lasix 40mg BID pending echo results. DVT prophylaxis-Lovenox subcu. This patient was seen by IVY Cota under the supervision of Dr. Arredondo. <Allan Arredondo - Last Filed: 07/08/18 17:32> Subjective: Seen and examined. Patient reports improvement in shortness of breath. Still has significant wheezing. Lower extremity swelling. Patient has significant his smoking and alcohol history. - Physical Exam General: Alert, Oriented x3, Cooperative HEENT: Atraumatic, PERRLA, EOMI, Normocephalic Neck: Supple, No JVD, Negative Carotid Bruits Lungs: Diminished, Rhonchi, Short of Breath, Wheezes Cardiovascular: Regular rate, No murmurs Abdomen: Bowel Sounds Present, Soft, Non Tender, Non-Distended, Obese Extremities: Edema Skin: No rashes, No breakdown Musculoskeletal: No Tenderness to Palpation of Joints or Extremities Neurological: Cranial nerves II-XII grossly intact Psych/Mental Status: Normal Affect, Appropriate Vital Signs Temp Pulse Resp BP Pulse Ox 98.5 F 108 H 20 H 153/85 H 105 07/08/18 11:10 07/08/18 16:42 07/08/18 11:10 07/08/18 11:10 07/08/18 11:10 Oxygen Flow Rate (L/min) 2 Oxygen Delivery Method Nasal Cannula Weight: 233 lb 6.384 oz Body Mass Index (BMI) 35.4 Intake and Output for Last 24 Hours 07/06/18 07/07/18 07/08/18 23:59 23:59 23:59 Intake Total 746 / 746 2687 / 2687 1291 / 1291 Output Total 150 / 150 500 / 500 Balance 596 / 596 2187 / 2187 1291 / 1291 Microbiology Past 72 Hours 07/06/18 13:45 Blood Culture - Preliminary Blood Culture (Wb) - Left Hand No growth in 48 hours. 07/07/18 09:47 Gram Stain - Final Sputum, Expectorated/Coughed Respiratory Culture - Preliminary Appears to be normal respiratory wan. Further studies to follow. 07/06/18 13:50 Urine Culture - Final Urine, Clean Catch Culture exhibits no growth. 07/06/18 13:15 Blood Culture - Preliminary Blood Culture (Wb) - Anticubital Right 07/06/18 13:50 Legionella Antigen - Final Urine, Clean Catch 07/06/18 13:50 Streptococcus pneumoniae Antigen (M - Final Urine, Clean Catch Laboratory Tests Past 24 Hrs 07/08/18 07/08/18 07/08/18 05:48 05:48 05:48 WBC 23.2 H RBC 2.73 L Hgb 9.2 L Hct 27.5 L MCV 100.7 H MCH 33.7 H MCHC 33.5 RDW 14.0 RDW Differential 48.8 H Plt Count 284 MPV 10.6 Sodium 138 Potassium 4.1 Chloride 100 Carbon Dioxide 30.0 Anion Gap 8 BUN 21 H Creatinine 0.87 Estim Creat Clear Calc 82.99 Est GFR (MDRD) Af Amer 114 Est GFR (MDRD) Non-Af 94 BUN/Creatinine Ratio 24.1 H Glucose 116 H Calcium 8.3 L B-Natriuretic Peptide 25.7 Assessment/Plan This patient was seen in conjunction with Ceci VILLALPANDO. I have independently interviewed and examined the patient and reviewed pertinent history, examination findings, laboratory and plan of management. I have reviewed the note and agree with the documented findings with the few additional points. In brief, patient is admitted for productive cough for past couple of months a long with shortness of breath, tachypnea which has gotten worse over the past few days and on further workup found to have left lower lobe and lingular lobe community-acquired pneumonia with underlying small left pleural effusion on chest CT scan consistent with severe sepsis secondary to multifocal community- acquired pneumonia/aspiration pneumonia. Urinary antigens negative. Was initially started on IV Rocephin and Zithromax then changed to IV antibiotic Unasyn. I have discussed my assessment with Ceci VILLALPANDO and orders have been reviewed. Code Visit Inpatient E&M: 02226 Subs Hosp L3
[2018-07-08 13:25] LABS: BNP,B-Type NATRIURETIC PEPTIDE 25.7 pg/mL (0-100)
[2018-07-08] MEDS: Furosemide 40 MG/4 ML Vial IV ×2 (13:36→18:38)
[2018-07-08] MEDS: 0.9% NaCl Peripheral Flush Adult/Peds IV (18:47)
[2018-07-09] VITALS (16 sets, daily range): BP systolic 128–159; BP diastolic 71–91; PULSE 102–111; RESP 16–20; TEMP 36.4–36.9; O2SAT 91–97
[2018-07-09] MEDS: oxyCODONE 5 MG Tablet PO (03:56)
[2018-07-09 06:21] LABS: Anion Gap 9 (5-15); BUN 20 mg/dL (7-18); BUN/Creat Ratio 23.7 RATIO (10-20); Calcium,Total 8.4 mg/dL (8.5-10.1); Chloride 96 mmol/L (98-107); Creatinine, Serum 0.84 mg/dL (0.70-1.30); EST Glomerular Filtration Rate 97 mL/min (>60); Est Glom Filt Rate - Afr Amer 118 mL/min (>60); Estimated Creatinine Clearance 85.95 ml/min; Glucose 120 mg/dL (74-106); Potassium 3.7 mmol/L (3.5-5.1); Sodium Level 137 mmol/L (136-145)
[2018-07-09 06:40] LABS: Hematocrit 23.4 % (40-54); Hemoglobin 9.2 g/dl (13.0-16.5); Mean Corp Hgb Conc 39.3 g/gl (32-36); Mean Corpuscular Hgb 40.7 pg (27.0-32.0); Mean Corpuscular Volume 103.5 fL (80-94); Mean Platelet Vol. 10.7 fl (6.2-12.0); Platelet Count 309 K/mm3 (150-450); RBC Distribution Width SD 48.6 fl (35.1-43.9); Red Blood Count 2.26 M/mm3 (4.6-6.2); White Blood Count 14.5 K/mm3 (4.4-11.0)
[2018-07-09 06:43] LABS: Scan Indicated on CBC? Y/N NO
[2018-07-09] MEDS: Ipratropium/Albuterol Sulfate 3 ML AMPUL.NEB INHALATION ×2 (07:20→19:07)
[2018-07-09] MEDS: Folic Acid 1 MG Tablet PO (08:04)
[2018-07-09] MEDS: Thiamine Hydrochloride 100 MG Tablet PO (08:04)
[2018-07-09] MEDS: guaiFENesin 1,200 MG Tablet 1200 MG PO ×2 (08:05→21:15)
[2018-07-09] MEDS: Enoxaparin 40 MG/0.4 ML Syringe SC (08:05)
[2018-07-09] MEDS: Lisinopril 10 MG Tablet PO (08:05)
[2018-07-09] MEDS: Furosemide 40 MG/4 ML Vial IV ×2 (08:05→16:59)
[2018-07-09 10:15] LABS: Iron 65 ug/dL (65-175); Iron Binding Capacity,Total 198 ug/dL (250-450); PERCENT IRON SATURATION 32.8 % (15.0-55.0)
[2018-07-09] MEDS: 0.9% NaCl IVPB Med Flush (250 mL) 15 ML IV (10:15)
[2018-07-09 10:58] LABS: Vitamin B12 455 pg/mL (211-911)
[2018-07-09] MEDS: Amox/Clavulanate 875 MG Tablet PO ×2 (11:21→21:15)
--- NOTE | 2018-07-09 14:36 | PN_ITS ---
<Franco Morrell - Last Filed: 07/09/18 14:28> Patient Problems: Active and Suspected Problems (Last Updated 07/06/18 @ 14:39 by Marcell Galvan DO) Severe sepsis (Acute) Pneumococcal pneumonia (Acute) Hyponatremia (Acute) Hypokalemia (Acute) Subjective: improving. Not on home o2. Still requiring O2. Still with productive cough and SOB especially with exertion. No CP. No dizzyness LH. No fever/chills. - Physical Exam General: Alert, Oriented x3, Cooperative HEENT: Atraumatic, PERRLA, EOMI, Normocephalic Neck: Supple, No JVD, Negative Carotid Bruits Lungs: Rales, Wheezes Cardiovascular: Regular rate, No murmurs Abdomen: Bowel Sounds Present, Soft, Non Tender Extremities: Capillary Refill Less than 3 Seconds, Edema - 2+ pitting edema BLE Skin: No rashes, No breakdown Musculoskeletal: No Tenderness to Palpation of Joints or Extremities Neurological: Cranial nerves II-XII grossly intact Psych/Mental Status: Normal Affect, Appropriate, Alert and oriented to time, place, person, mood and affect Vital Signs Temp Pulse Resp BP Pulse Ox 97.5 F L 104 H 20 H 137/71 H 91 07/09/18 09:45 07/09/18 11:14 07/09/18 14:00 07/09/18 09:45 07/09/18 14:00 Oxygen Flow Rate (L/min) 2 Oxygen Delivery Method Room Air Weight: 233 lb 6.384 oz Body Mass Index (BMI) 35.4 Intake and Output for Last 24 Hours 07/07/18 07/08/18 07/09/18 23:59 23:59 23:59 Intake Total 2687 / 2687 2036 / 2036 2468 / 2468 Output Total 500 / 500 1325 / 1325 2075 / 2075 Balance 2187 / 2187 711 / 711 393 / 393 Microbiology Past 72 Hours 07/07/18 09:47 Gram Stain - Final Sputum, Expectorated/Coughed Respiratory Culture - Final Presumptive C albicans 07/06/18 13:45 Blood Culture - Preliminary Blood Culture (Wb) - Left Hand No growth in 48 hours. 07/06/18 13:50 Urine Culture - Final Urine, Clean Catch Culture exhibits no growth. 07/06/18 13:15 Blood Culture - Preliminary Blood Culture (Wb) - Anticubital Right 07/06/18 13:50 Legionella Antigen - Final Urine, Clean Catch 07/06/18 13:50 Streptococcus pneumoniae Antigen (M - Final Urine, Clean Catch Laboratory Tests Past 24 Hrs 07/09/18 07/09/18 07/09/18 05:30 05:30 05:30 WBC 14.5 H RBC 2.26 L Hgb 9.2 L Hct 23.4 L MCV 103.5 H MCH 40.7 H MCHC 39.3 H RDW 15.0 H RDW Differential 48.6 H Plt Count 309 MPV 10.7 Sodium 137 Potassium 3.7 Chloride 96 L Carbon Dioxide 32.0 Anion Gap 9 BUN 20 H Creatinine 0.84 Estim Creat Clear Calc 85.95 Est GFR (MDRD) Af Amer 118 Est GFR (MDRD) Non-Af 97 BUN/Creatinine Ratio 23.7 H Glucose 120 H Calcium 8.4 L Iron TIBC Iron Saturation Vitamin B12 455 Folate 07/09/18 05:30 WBC RBC Hgb Hct MCV MCH MCHC RDW RDW Differential Plt Count MPV Sodium Potassium Chloride Carbon Dioxide Anion Gap BUN Creatinine Estim Creat Clear Calc Est GFR (MDRD) Af Amer Est GFR (MDRD) Non-Af BUN/Creatinine Ratio Glucose Calcium Iron 65 TIBC 198 L Iron Saturation 32.8 Vitamin B12 Folate 23.90 Medical Necessity - Tobacco Use Smoking Status: Heavy Smoker (>10/day) Tobacco Use: Cigarettes Assessment/Plan All Active Problems (Last Updated 07/06/18 @ 14:39 by Marcell Galvan DO) Severe sepsis (Acute) Pneumococcal pneumonia (Acute) Hyponatremia (Acute) Hypokalemia (Acute) 1. Severe sepsis 2/2 CAP vs aspiration - left lower lobe. diet advanced to normal per speech. Abx to augmentin. Afebrile. Still tachy. WBC improving. Blood cx neg. Urine ag neg. Sputum with C albicans. 2. Suspect underlying COPD with exacerbation - add prednisone. Wheezy plus heavy smoking hx 3. Acute diastolic CHF - no prior dx - echo with EF of 55% in stage II diastolic dysfunction, unable to estimate pulmonary pressure, probably normal. Still with significant edema, rales and wheezing. Continue IV Lasix. Monitor CO2, trending up. 3. Nicotine abuse - stopped only 2 weeks ago 4. Macrocytic anemia-iron, B12, folate normal. 5. Alcoholism-continue CIWA protocol, folate and thiamine. DVT prophylaxis-Lovenox DC planning-we will attempt to wean oxygen as he does not use this at home. he still has significant symptoms, will maintain overnight in the hospital and see if he improves by tomorrow. This patient was seen by Franco Morrell PA-C under the supervision of Doctor Arnulfo. <Allan Arredondo - Last Filed: 07/09/18 16:25> Subjective: Currently, patient is on 2 L of oxygen. Patient is chronic smoker and alcoholic. Patient shortness of breath is improved but is still not at baseline. Has productive cough. Of note, patient does not have insurance. - Physical Exam General: Alert, Oriented x3, Cooperative HEENT: Atraumatic, PERRLA, EOMI, Normocephalic Neck: Supple, No JVD, Negative Carotid Bruits Lungs: Diminished, Rhonchi, Short of Breath, Wheezes - On examination Cardiovascular: Regular rate, Normal S1, Normal S2, No murmurs Abdomen: Bowel Sounds Present, Soft, Non Tender Extremities: Capillary Refill Less than 3 Seconds, Edema Skin: No rashes, No breakdown Musculoskeletal: No Tenderness to Palpation of Joints or Extremities, Arthritic Changes Neurological: Cranial nerves II-XII grossly intact Psych/Mental Status: Normal Affect, Appropriate Vital Signs Temp Pulse Resp BP Pulse Ox 97.5 F L 106 H 20 H 137/71 H 91 07/09/18 09:45 07/09/18 15:57 07/09/18 14:00 07/09/18 09:45 07/09/18 14:00 Oxygen Flow Rate (L/min) 2 Oxygen Delivery Method Room Air Weight: 233 lb 6.384 oz Body Mass Index (BMI) 35.4 Intake and Output for Last 24 Hours 07/07/18 07/08/18 07/09/18 23:59 23:59 23:59 Intake Total 2687 / 2687 2035 / 6 2468 / 2468 Output Total 500 / 500 1325 / 1325 2074 / 2075 Balance 2187 / 2187 711 / 711 393 / 393 Microbiology Past 72 Hours 07/07/18 09:47 Gram Stain - Final Sputum, Expectorated/Coughed Respiratory Culture - Final Presumptive C albicans 07/06/18 13:45 Blood Culture - Preliminary Blood Culture (Wb) - Left Hand No growth in 48 hours. 07/06/18 13:50 Urine Culture - Final Urine, Clean Catch Culture exhibits no growth. 07/06/18 13:15 Blood Culture - Preliminary Blood Culture (Wb) - Anticubital Right 07/06/18 13:50 Legionella Antigen - Final Urine, Clean Catch 07/06/18 13:50 Streptococcus pneumoniae Antigen (M - Final Urine, Clean Catch Laboratory Tests Past 24 Hrs 07/09/18 07/09/18 07/09/18 05:30 05:30 05:30 WBC 14.5 H RBC 2.26 L Hgb 9.2 L Hct 23.4 L MCV 103.5 H MCH 40.7 H MCHC 39.3 H RDW 15.0 H RDW Differential 48.6 H Plt Count 309 MPV 10.7 Sodium 137 Potassium 3.7 Chloride 96 L Carbon Dioxide 32.0 Anion Gap 9 BUN 20 H Creatinine 0.84 Estim Creat Clear Calc 85.95 Est GFR (MDRD) Af Amer 118 Est GFR (MDRD) Non-Af 97 BUN/Creatinine Ratio 23.7 H Glucose 120 H Calcium 8.4 L Iron TIBC Iron Saturation Vitamin B12 455 Folate 07/09/18 05:30 WBC RBC Hgb Hct MCV MCH MCHC RDW RDW Differential Plt Count MPV Sodium Potassium Chloride Carbon Dioxide Anion Gap BUN Creatinine Estim Creat Clear Calc Est GFR (MDRD) Af Amer Est GFR (MDRD) Non-Af BUN/Creatinine Ratio Glucose Calcium Iron 65 TIBC 198 L Iron Saturation 32.8 Vitamin B12 Folate 23.90 Assessment/Plan This patient was seen in conjunction with Franco LANDIS. I have independently interviewed and examined the patient and reviewed pertinent history, examination findings, laboratory and plan of management. I have reviewed the note and agree with the documented findings with the few additional points. In brief, patient is admitted for productive cough for past couple of months along with shortness of breath, tachypnea which has gotten worse over the past few days and on further workup found to have left lower lobe and lingular lobe community-acquired pneumonia with underlying small left pleural effusion on chest CT scan consistent with severe sepsis secondary to multifocal community- acquired pneumonia/aspiration pneumonia. Urinary antigens negative. Was initially started on IV Rocephin and Zithromax then changed to IV antibiotic Unasyn was changed to oral Augmentin. Sputum culture growing rare Liliana albicans. Nystatin swish and swallow ordered I have discussed my assessment with Franco LANDIS and orders have been reviewed. Code Visit Inpatient E&M: 29355 Subs Hosp L3
[2018-07-09] MEDS: predniSONE 20 MG Tablet 40 MG PO (16:17)
[2018-07-09] MEDS: 0.9% NaCl Peripheral Flush Adult/Peds IV (16:59)
[2018-07-09] MEDS: MELATONIN 3 MG TABLET 6 MG PO (23:42)
[2018-07-10] VITALS (8 sets, daily range): BP systolic 140–156; BP diastolic 77–78; PULSE 98–106; RESP 18–20; TEMP 36.5–36.8; O2SAT 90–95
[2018-07-10] MEDS: Ipratropium/Albuterol Sulfate 3 ML AMPUL.NEB INHALATION (01:46)
[2018-07-10 06:35] LABS: Anion Gap 8 (5-15); BUN 19 mg/dL (7-18); BUN/Creat Ratio 20.6 RATIO (10-20); Calcium,Total 8.5 mg/dL (8.5-10.1); Chloride 93 mmol/L (98-107); Creatinine, Serum 0.92 mg/dL (0.70-1.30); EST Glomerular Filtration Rate 88 mL/min (>60); Est Glom Filt Rate - Afr Amer 106 mL/min (>60); Estimated Creatinine Clearance 78.48 ml/min; Glucose 150 mg/dL (74-106); Potassium 3.8 mmol/L (3.5-5.1); Sodium Level 133 mmol/L (136-145)
[2018-07-10] MEDS: predniSONE 20 MG Tablet 40 MG PO (08:27)
[2018-07-10] MEDS: Amox/Clavulanate 875 MG Tablet PO (08:28)
[2018-07-10] MEDS: Enoxaparin 40 MG/0.4 ML Syringe SC (08:28)
[2018-07-10] MEDS: guaiFENesin 1,200 MG Tablet 1200 MG PO (08:28)
[2018-07-10] MEDS: Lisinopril 10 MG Tablet PO (08:28)
[2018-07-10] MEDS: Loperamide 2 MG Capsule PO (09:40)
[2018-07-10] MEDS: Furosemide 40 MG Tablet PO (10:21)
--- NOTE | 2018-07-10 11:06 | DCINST_ITS ---
- Discharge Diagnoses Current Active Problems: Current Active and Chronic Problems (Last Updated 07/06/18 @ 14:39 by Marcell Galvan DO) Severe sepsis (Acute) Pneumococcal pneumonia (Acute) Hyponatremia (Acute) Hypokalemia (Acute) You will use the following diet at home:: Cardiac - <2 grams sodium daily Your food should be the consistency of: Regular Your liquids should be the consistency of: Regular/Thin Discharge Activity: Return to Normal Activity, - - no alcohol or smoking Allergies/Adverse Reactions: Allergies grass pollen Allergy (Verified 07/06/18 12:30) Other mold Allergy (Verified 07/06/18 12:30) Other ragweed pollen Allergy (Verified 07/06/18 12:30) Other Medications to take at Discharge Albuterol IH (ProAir) [Proair Hfa] 1 puff INHALATION Q6H PRN PRN #1 inhaler 07/10/18 Amox/Clavulanate Tablet [Augmentin Tablet] 875 mg PO BID #7 tablet 07/10/18 Furosemide [Lasix] 40 mg PO BID@1000,1800 #60 tablet 07/10/18 Lisinopril [Zestril] 10 mg PO DAILY #30 tablet 07/10/18 Prednisone 10 mg PO UD #26 tab 07/10/18 The following prescriptions were given: Albuterol IH (ProAir) [Proair Hfa] 1 puff INHALATION Q6H PRN PRN #1 inhaler PRN Reason: Sob &/Or Wheezing Amox/Clavulanate Tablet [Augmentin Tablet] 875 mg PO BID #7 tablet Furosemide [Lasix] 40 mg PO BID@1000,1800 #60 tablet Lisinopril [Zestril] 10 mg PO DAILY #30 tablet Prednisone 10 mg PO UD #26 tab Orders to be completed after discharge: Basic Metabolic Profile (BMP) Time Frame: 1 Week, Location: Laboratory Primary Care Physician: NOT,DEFINED [NON-STAFF] - Please follow up with your Primary Care Physician in: 1-2 weeks Test Results: Test results from this visit will be discussed in further detail at your follow- up appointment, if applicable. Proposed Discharge Date: 07/10/18
--- NOTE | 2018-07-10 13:20 | DS.PCM_ITS ---
<Franco Morrell - Last Filed: 07/10/18 13:23> Discharge Date and Diagnosis Date of Admission: 07/06/18 Date of Discharge: 07/10/18 - Primary Discharge Diagnosis Active and Suspected Problems (Last Updated 07/06/18 @ 14:39 by Marcell Galvan DO) Severe sepsis secondary to community-acquired versus aspiration pneumonia of the left lower lobe. CHF (congestive heart failure) (Acute)-acute diastolic Suspected COPD exacerbation (Acute) Nicotine abuse (Acute) Alcohol abuse Macrocytic anemia Thrush Hospital Course and Treatment Imaging Results: RAD/Chest 1 View (Portable) IMPRESSION: Small left pleural effusion with underlying left basilar infiltration. Operations: None Procedures: 2-D Echocardiogram Summary of Care Provided: Physical exam on day of discharge: General: Resting comfortably NAD Psych: A/Ox3 normal affect HEENT: PEARRLA AT NC Neck: Supple NT CV: RRR no m/t/r/g/h Resp: CTA, somewhat diminished Abd: [id number] Soft NT no guarding or rigidity Ext: DP2+= 1-2+ pitting edema bilateral lower extremities Skin: W/D normal turgor Lymph/Heme: No active bleeding or adenopathy Neuro: CN2-12 intact Hospital course: The patient is a 63 year old M with a PMhx of smoking, alcohol abuse, who presented to the ER with increased SOB and cough with green phlegm. CXR showed LLL pna and he appeared so be severely septic with elevated white count, tachycardia, thachypneic, and lactic acidosis. He also had hyponatremia (thought to be beer potomania), and hypokalemic. He drinks 12 beers per day meggan etimes along with a pint of vodka. He was started on rocephin and azithromcyin, mucinex, CIWA protocol with thiamine, folate, and ativan. With his alcoholism there was concern for aspiration. He was changed to unasyn. He had severe LE edema and small pleural effusion and was started on lasix for suspected CHF. Echo showed preserved EF. Edema improved with lasix. He continued to have wheezing and with heavy smoking hx it was felt that he likely had underlying COPD, prednisone was started, wheezing resolved the next day. He was weaned off O2. Cultures did not reveal a significant bacterial etiology so it was presumed that his pna was pneumococcal. He did grow betty which was felt to be thrush - he was given nystatin. As patient had no further needs and was weaned off oxygen, he was discharged home in stable condition. He will complete total of 7 days of Augmentin, he will can complete a prednisone taper, continue taking albuterol, lisinopril and Lasix. Also of note he was anemic with macrocytosis while here. B12, folate, iron, were normal. He does not have a PCP and was provided with a list of local PCPs and advised to follow-up in 1-2 weeks. I also advised him to have an outpatient BMP. This patient was seen by Franco Morrell PA-C under the supervision of Doctor Arnulfo. [] Discharge Diet: Low fat/ Low Cholesterol, 2000 mg Sodium Diet Discharge Activity: Return to Normal Activity, - - no alcohol or smoking Home Medications: Medications to take at Discharge RX: Albuterol IH (ProAir) [Proair Hfa] 1 puff INHALATION Q6H PRN PRN #1 inhaler 07/10/18 RX: Amox/Clavulanate Tablet [Augmentin Tablet] 875 mg PO BID #7 tablet 07/10/18 RX: Furosemide [Lasix] 40 mg PO BID@1000,1800 #60 tablet 07/10/18 RX: Lisinopril [Zestril] 10 mg PO DAILY #30 tablet 07/10/18 RX: Nystatin 500,000 unit PO BID #1 bottle 07/10/18 RX: Prednisone 10 mg PO UD #26 tab 07/10/18 Following Prescrptions Were Given to Patient: RX: Albuterol IH (ProAir) [Proair Hfa] 1 puff INHALATION Q6H PRN PRN #1 inhaler PRN Reason: Sob &/Or Wheezing RX: Furosemide [Lasix] 40 mg PO BID@1000,1800 #60 tablet RX: Lisinopril [Zestril] 10 mg PO DAILY #30 tablet RX: Prednisone 10 mg PO UD #26 tab RX: Amox/Clavulanate Tablet [Augmentin Tablet] 875 mg PO BID #7 tablet RX: Nystatin 500,000 unit PO BID #1 bottle Other Amb Orders: Basic Metabolic Profile (BMP) Time Frame: 1 Week, Location: Laboratory Primary Care Physician: NOT,DEFINED [NON-STAFF] - Please follow up with your Primary Care Physician in: 1-2 weeks Disposition: Home Minutes spent on discharge:: 35 Patient Condition:: Stable Medical Necessity - Tobacco Use Smoking Status: Heavy Smoker (>10/day) Tobacco Use: Cigarettes Meaningful Use Info Meaningful Use Diagnoses (Choose all that apply): CHF - CHF QUIQUE/ARB ordered at discharge?: Yes Documented LVEF (%): 55 <ArnulfoAllan - Last Filed: 07/10/18 16:01> Hospital Course and Treatment Summary of Care Provided: The patient was seen and examined today. No fever or chills. Shortness of breath has improved. General: Alert, Oriented x3, Cooperative HEENT: Atraumatic, PERRLA, EOMI, Normocephalic Neck: Supple, No JVD, Negative Carotid Bruits Lungs: Rhonchi, Wheezes air entry diminished bilaterally but has improved Cardiovascular: Regular rate, Normal S1, Normal S2, No murmurs Abdomen: Bowel Sounds Present, Soft, Non Tender Extremities: Capillary Refill Less than 3 Seconds, Edema improved Skin: No rashes, No breakdown Musculoskeletal: No Tenderness to Palpation of Joints or Extremities, Arthritic Changes Neurological: Cranial nerves II-XII grossly intact Psych/Mental Status: Normal Affect, Appropriate [] This patient was seen in conjunction with Franco LANDIS. I have independently interviewed and examined the patient and reviewed pertinent history, examination findings, laboratory and plan of management. I have reviewed the note and agree with the documented findings with the few additional points. In brief, patient is admitted for productive cough for past couple of months along with shortness of breath, tachypnea which has gotten worse over the past few days and on further workup found to have left lower lobe and lingular lobe community-acquired pneumonia with underlying small left pleural effusion on chest CT scan consistent with severe sepsis secondary to multifocal community- acquired pneumonia/aspiration pneumonia. Urinary antigens negative. Was initially started on IV Rocephin and Zithromax then changed to IV antibiotic Unasyn was changed to oral Augmentin. Sputum culture growing rare Betty albicans. Nystatin swish and swallow ordered. Discharge medication reconciliation done. Patient is discharged on tapering dose of prednisone, nystatin swish and swallow and Augmentin. Patient passed swallow test as evaluated by speech therapist. Total time spent, exact 35 minutes on discharge meds reconciliation, examination, review of imaging and blood test and discussion with the patient on follow-up instructions. I have discussed my assessment with Franco LANDIS and orders have been reviewed. Code Visit Inpatient E&M: 63072 Disch Hosp
== END 2018-07-10 12:13 | disposition home or self-care (01) | DRG 871 ==
LOC: ED 13:45 → MS2 14:27 → PCU 14:39
PROVIDERS: Nurse Practitioner Family; Physician Assistant; Emergency Provider Emergency Medicine; Visit Provider Internal Medicine
DX: A41.9 Sepsis, unspecified organism (principal); J69.0 Pneumonitis due to inhalation of food and vomit; I50.31 Acute diastolic (congestive) heart failure; J13 Pneumonia due to Streptococcus pneumoniae; J44.1 Chronic obstructive pulmonary disease with (acute) exacerbation; J44.0 Chronic obstructive pulmonary disease with (acute) lower respiratory infection; F10.239 Alcohol dependence with withdrawal, unspecified; E87.1 Hypo-osmolality and hyponatremia; R65.20 Severe sepsis without septic shock; D53.9 Nutritional anemia, unspecified; F17.210 Nicotine dependence, cigarettes, uncomplicated; B37.9 Candidiasis, unspecified; E87.6 Hypokalemia; Z23 Encounter for immunization
CPT/HCPCS: 36415; 71045; 71260; 80048; 80053; 80307; 81001; 82607; 82746; 83540; 83550; 83605; 83735; 83880; 85025; 85027; 85610; 85730; 87040; 87070; 87086; 87205; 87449; 93005; 93306; 94640; 94667; 94668; 94762; 97110; 97116; 97162; 97165; 97530; 97535; 97802; 99283; 99406; J7030; J7040; J7050; Q9957; Q9967; 90686; A4216; C8929; J0295; J1940

== ENCOUNTER 2019-05-04 18:16 | Emergency (ER) | payer SELFPAY ==
[2019-05-04 18:18] VITALS: BP 151/104; PULSE 104; RESP 18; TEMP 36.6; O2SAT 97; BMI 38.9
--- NOTE | 2019-05-04 19:47 | ED.VISSUMM ---
- ER Visit Summary Date of Service: 05/04/19 Chief Complaint: Lower extremity edema History of Present Illness: The patient is a 63 M presenting with bilateral lower extremity edema. Patient states he has been out of his Lasix for the past 2 months. He was previously taking Lasix 40 mg twice daily. He is also about to run out of his blood pressure medication. He states over the past month he has had increasing swelling in his lower extremities. He denies chest pain or shortness of breath. Denies injury. Denies recent travel or history of blood clots. He does have appointment coming up with his primary care physician in 1.5 weeks. Family was concerned about area of redness to the left lower leg. No fever. No other complaints. Physical Examination: Vitals are stable. Patient is afebrile. Alert no acute distress. HEENT exam is unremarkable. Neck is supple. Lungs are clear and equal bilaterally. Heart is regular rate and rhythm. Abdomen is soft nontender nondistended. Extremities symmetric lower extremity edema. Area of erythema to the anterior left lower leg. No drainage. No calf tenderness. Normal pulses. Skin is warm and dry. No focal neurologic deficit. Remainder of exam is unremarkable. Emergency Department Course and Treatment: Bilateral lower extremity venous Doppler shows no evidence of DVT. Patient refused blood work. He is given refills of his Lasix and lisinopril. He is given Keflex for concern of early cellulitis. Advised to follow-up with his primary care physician as scheduled. Advised return to ED for worsening complaints. Disposition: Discharge home Impression: Peripheral edema, left lower extremity cellulitis This note was generated with [employer] dictation software. It may contain incorrect words, spelling, and punctuation that were not noted in review of the chart prior to signing ED Disposition - Plan for ED Patient: Instructions: ED Peripheral Edema, Bilateral Prescriptions: Cephalexin [Keflex] 500 mg PO Q6 #40 cap Prescription Printed Furosemide [Lasix] 40 mg PO BID #60 tab Prescription Printed Lisinopril [Zestril] 10 mg PO DAILY #30 tab Prescription Printed Referrals: Patrice Stevens MD [NON-STAFF] - Care Physician,No Primary [Primary Care Provider] -
--- NOTE | 2019-05-04 19:52 | US_ITS ---
STUDY: VENOUS DOPPLER ULTRASOUND - BILATERAL LOWER EXTREMITIES REASON FOR EXAM: Male, 63 years old. Bilateral leg swelling TECHNIQUE: Ultrasound evaluation of the deep vein system to include liang-scale imaging and compression was performed. Liang-scale imaging and Doppler sonographic evaluation, including duplex spectral analysis and qualitative color flow sonography, was performed. COMPARISON: None. FINDINGS: RIGHT LEG Common Femoral Vein: Normal compression, spontaneity and augmentation. Normal color Doppler. Common Femoral Vein/Greater Saphenous Junction: Normal compression, spontaneity and augmentation. Normal color Doppler. Femoral Proximal: Normal compression, spontaneity and augmentation. Normal color Doppler. Femoral Middle: Normal compression, spontaneity and augmentation. Normal color Doppler. Femoral Distal: Normal compression, spontaneity and augmentation. Normal color Doppler. Popliteal Vein: Normal compression, spontaneity and augmentation. Normal color Doppler. Posterior Tibial Vein: Normal compression, spontaneity and augmentation. Normal color Doppler. Peroneal Vein: Normal compression, spontaneity and augmentation. Normal color Doppler. Subcutaneous edema. LEFT LEG Common Femoral Vein: Normal compression, spontaneity and augmentation. Normal color Doppler. Common Femoral Vein/Greater Saphenous Junction: Normal compression, spontaneity and augmentation. Normal color Doppler. Femoral Proximal: Normal compression, spontaneity and augmentation. Normal color Doppler. Femoral Middle: Normal compression, spontaneity and augmentation. Normal color Doppler. Femoral Distal: Normal compression, spontaneity and augmentation. Normal color Doppler. Popliteal Vein: Normal compression, spontaneity and augmentation. Normal color Doppler. Posterior Tibial Vein: Normal compression, spontaneity and augmentation. Normal color Doppler. Peroneal Vein: Normal compression, spontaneity and augmentation. Normal color Doppler. There is subcutaneous edema. US/Venous Duplex Imag/Adolfo Extrem IMPRESSION: Normal venous Doppler ultrasound of the bilateral lower extremities. No DVT Bilateral subcutaneous edema Electronically Signed: Will Madrid, at 20:56 EDT Tel , Service support ,
--- NOTE | 2019-05-04 20:51 | ED.DEP ---
ED Disposition - Plan for ED Patient: Instructions: ED Peripheral Edema, Bilateral Prescriptions: Furosemide [Lasix] 40 mg PO BID #60 tablet Lisinopril 20 mg PO DAILY #30 tablet Referrals: Care Physician,No Primary [Primary Care Provider] - Patrice Stevens MD [NON-STAFF] -
--- NOTE | 2019-05-04 20:54 | ED.DEP ---
ED Disposition - Plan for ED Patient: Instructions: ED Peripheral Edema, Bilateral Prescriptions: Furosemide [Lasix] 40 mg PO BID #60 tab Prescription Printed Lisinopril [Zestril] 10 mg PO DAILY #30 tablet Referrals: Patrice Stevens MD [NON-STAFF] - Care Physician,No Primary [Primary Care Provider] -
--- NOTE | 2019-05-04 21:06 | ED.DEP ---
ED Disposition - Plan for ED Patient: Instructions: ED Peripheral Edema, Bilateral Prescriptions: Cephalexin [Keflex] 500 mg PO Q6 #40 capsule Furosemide [Lasix] 40 mg PO BID #60 tab Prescription Printed Lisinopril [Zestril] 10 mg PO DAILY #30 tab Prescription Printed Referrals: Patrice Stevens MD [NON-STAFF] - Care Physician,No Primary [Primary Care Provider] -
[2019-05-04] MEDS: Furosemide 40 MG Tablet PO (21:20)
[2019-05-04] MEDS: Cephalexin 250 MG Capsule 500 MG PO (21:20)
== END 2019-05-04 21:23 | disposition home or self-care (01) ==
PROVIDERS: Emergency Provider Emergency Medicine
DX: L03.116 Cellulitis of left lower limb (principal); R60.0 Localized edema; I10 Essential (primary) hypertension; J44.9 Chronic obstructive pulmonary disease, unspecified; E78.00 Pure hypercholesterolemia, unspecified; Z79.899 Other long term (current) drug therapy
CPT/HCPCS: 93970; 99283